=== PATIENT | male | born 1950 | race Caucasian/White ===

== ENCOUNTER 2016-11-25 08:20 | Inpatient (IN) | payer OTHER ==
[2016-11-10 13:44] VITALS: BMI 29.0
--- NOTE | 2016-11-10 14:17 | PAT Medication Instructions ---
Service Date Nov 10, 2016. Current Home Medication List Acetaminophen (Tylenol), 1,000 MG PO UD PRN for Pain Phenylephrine-Ibuprofen (Advil Sinus Congestion & 10-200 mg), 1 DOSE PO UD PRN for SINUS CONGESTION Medication Instructions For Your Scheduled Surgery - Hold the following medications the morning of surgery: Phenylephrine-Ibuprofen (Advil Sinus Congestion & 10-200 mg), 1 DOSE PO UD PRN for SINUS CONGESTION (otherwise okay to continue per surgeon) - Take the following medications the morning of surgery with a sip of water otherwise nothing to eat or drink after midnight: Acetaminophen (Tylenol), 1,000 MG PO UD PRN for Pain (may take if needed up to 4 hours prior to surgery) - Take the following medications as scheduled the night before surgery: Acetaminophen (Tylenol), 1,000 MG PO UD PRN for Pain If you have any questions please call us at [phone] or [phone] or [phone]
--- NOTE | 2016-11-10 14:42 | DIAGNOSTIC IMAGING REPORT ---
CHEST 2 VIEWS ROUTINE HISTORY: 66 years-old Male PAT preoperative study. No acute chest complaints. COMPARISON: Chest radiographs 11/14/2012 TECHNIQUE: Frontal and lateral views of the chest FINDINGS: Cardiomediastinal and hilar silhouettes are within normal limits. There is atherosclerosis of the aorta. No pneumothorax, pleural effusion, focal airspace consolidation or overt pulmonary edema. Minimal subsegmental atelectasis of the lingula. The bones are grossly intact. IMPRESSION: No acute cardiopulmonary process. The above report was generated using voice recognition software. It may contain grammatical, syntax or spelling errors. Electronically signed by: Robert Levi M.D. 11/10/2016 2:41 PM Dictated Date/Time: 11/10/2016 2:40 PM
[2016-11-10 14:48] LABS: BASO % 0.8 %; BASO ABS # 0.04 K/uL (0-0.2); COMPLETE YES; EOS % 2.7 %; HEMATOCRIT 41.5 % (42-52); IG% 0.2 %; LYMPH % 42.9 %; LYMPH ABS # 2.09 K/uL (1.2-3.4); MEAN CORPUSCULAR HEMOGLOBIN 31.7 pg (25-34); MEAN CORPUSCULAR HGB CONC 34.5 g/dl (32-36); MEAN PLATELET VOLUME 9.3 fL (7.4-10.4); MONO % 7.2 %; NEUT % 46.2 %; PLATELET COUNT 305 K/uL (130-400); RED BLOOD COUNT 4.51 M/uL (4.7-6.1); WHITE BLOOD COUNT 4.87 K/uL (4.8-10.8)
[2016-11-10 14:51] LABS: URINE APPEARANCE CLEAR (CLEAR); URINE BILIRUBIN NEG (NEG); URINE COLOR YELLOW; URINE NITRITE NEG (NEG); UROBILINOGEN NEG (NEG); ZZUR CULT IF INDIC CLEAN CATCH NO
[2016-11-10 14:57] LABS: BUN/CREATININE RATIO 22.1 (10-20); CALCIUM 9.9 mg/dl (8.5-10.1); CREATININE 0.75 mg/dl (0.60-1.40); POTASSIUM 4.1 mmol/L (3.5-5.1)
[2016-11-10 14:59] LABS: MANUAL MICROSCOPIC REQUIRED? NO; REVIEW REQ? NO
[2016-11-25] VITALS (7 sets, daily range): BP systolic 132–146; BP diastolic 72–90; PULSE 62–89; TEMP 36.3–36.7; O2SAT 95–99; Ht 175.3 cm; Wt 88.9 kg
[~2016-11-25] VITALS: Ht 175.3 cm; Wt 88.9 kg
[~2016-11-25 08:20] MED LIST: ACET-1256 PO; CEFAZOLIN 2000 MG/60 ML D5W IV SCH; CLINDAMYCIN 600 MG/54 ML D5W IV SCH; LACTATED RINGER'S 1000ML 1,000 ML IV SCH; PHEN-1083 PO
[2016-11-25] MEDS ORDERED: FENTANYL CITRATE INJ 50 MCG/1 ML 2 ML VIAL ONE ×3 (09:50→11:49)
[2016-11-25] MEDS ORDERED: MIDAZOLAM HCL 1 MG/ML 2ML VIAL ONE (09:50)
--- NOTE | 2016-11-25 09:56 | History & Physical Bridge Note ---
H&P Re-Evaluation Bridge Note: I have examined the patient, reviewed the History & Physical and in the interval since the performance of the History & Physical I have noted the following changes of clinical significance: No changes noted
--- NOTE | 2016-11-25 09:57 | History and Physical ---
History & Physical Date Nov 25, 2016. Chief Complaint Back and leg pain History of Present Illness The patient is a 66 year old male with complaints of back and leg pain Additional History Hepatic Disease: No Endocrine Disorder: No Kidney Disease: No Hypertension: No Heart Disease: No Bleeding Tendencies: No Infectious Diseases: No Allergies Coded Allergies: Ampicillin (Verified Allergy, Mild, RASH, 11/10/16) Adhesives (Verified Allergy, Unknown, RASH, 11/10/16) Hornet Venom (Verified Allergy, Unknown, "hornet sting = swelled up", 11/10) Penicillins (Verified Allergy, Unknown, RASH, 11/10/16) Home Medications Scheduled PRN Acetaminophen (Tylenol), 1,000 MG PO UD PRN for Pain Phenylephrine-Ibuprofen (Advil Sinus Congestion & 10-200 mg), 1 DOSE PO UD PRN for SINUS CONGESTION Physical Examination Skin: warm/dry, no rash Eyes: normal inspection, EOMI, sclerae normal ENT: normal ENT inspection, pharynx normal Head: normocephalic, atraumatic Neck: supple, no adenopathy, trachea midline Respiratory/Chest: lungs clear, normal breath sounds, no respiratory distress Cardiovascular: regular rate, rhythm, no edema, no murmur Abdomen / GI: normal bowel sounds, non tender Back: normal inspection Extremities: normal inspection, normal range of motion Neurologic/Psych: no motor/sensory deficits, alert, normal reflexes, oriented x 3 Diagnosis Lumbar spinal stenosis Plan of Treatment Treatment L2 3 with removal of hardware L3 4
[2016-11-25] MEDS ORDERED: CLINDAMYCIN 600 MG/54 ML D5W IV ONE (10:12)
[2016-11-25] MEDS ORDERED: BACITRACIN 50000 UNIT VIAL ONE (10:23)
[2016-11-25] MEDS ORDERED: BUPIVACAINE/EPINEPHRINE 0.5% MPF 1:200,000 30 ML VIAL ONE (10:23)
[2016-11-25] MEDS ORDERED: EpHEDrine SULFATE INJ 50 MG/ML AMP IV PRN (10:30)
[2016-11-25] MEDS ORDERED: PROMETHAZINE HCL INJ 6.25 MG in SODIUM CHLORIDE 0.9% 50ML 50 ML IV PRN (10:30)
[2016-11-25] MEDS ORDERED: HYDROmorphone INJ 1 MG/ML SYR IV PRN (10:30)
[2016-11-25] MEDS ORDERED: ATROPINE SULFATE 0.1 MG/ML 5ML SYR IV PRN (10:30)
[2016-11-25] MEDS ORDERED: FENTANYL CITRATE INJ 50 MCG/1 ML 2 ML VIAL IV PRN (10:30)
[2016-11-25] MEDS ORDERED: ONDANSETRON INJ 2 MG/ML 2 ML VIAL IV PRN ×2 (10:30→12:30)
[2016-11-25] MEDS ORDERED: HYDROmorphone INJ 2 MG/ML SYR/VIAL ONE ×2 (10:59→12:27)
[2016-11-25] MEDS ORDERED: PROPOFOL IV EMULSION 10 MG/ML 20 ML VIAL IV ONE (11:11)
[2016-11-25] MEDS ORDERED: DEXAMETHASONE SOD INJ 4 MG/ML VIAL ONE (11:11)
[2016-11-25] MEDS ORDERED: LIDOCAINE HCL 2% 2 ML VIAL (20MG/ML) ONE (11:11)
[2016-11-25] MEDS ORDERED: SODIUM CHLORIDE 0.9% 1000ML 1,000 ML IV SCH (12:23)
[2016-11-25] MEDS ORDERED: FLOSEAL HEMOSTATIC MATRIX 10ML TOP ONE (12:25)
[2016-11-25] MEDS ORDERED: EpHEDrine SULFATE 50MG/5ML SYR ONE (12:29)
[2016-11-25] MEDS ORDERED: NEOSTIGMINE METHYLSULFATE 1 MG/ML 10ML VIAL ONE (12:29)
[2016-11-25] MEDS ORDERED: GLYCOPYRROLATE INJ 0.2 MG/ML VIAL ONE (12:29)
[2016-11-25] MEDS ORDERED: ROCURONIUM BROMIDE 10 MG/ML 5 ML VIAL IV ONE (12:29)
[2016-11-25] MEDS ORDERED: KETOROLAC TROMETHAMINE 30 MG/ML VIAL ONE (12:29)
[2016-11-25] MEDS ORDERED: FAMOTIDINE 20 MG TAB PO PRN (12:30)
[2016-11-25] MEDS ORDERED: ACETAMINOPHEN 500 MG TAB PO PRN (12:30)
[2016-11-25] MEDS ORDERED: ALUMINUM/MAGNESIUM SUSP 30 ML UDC PO PRN (12:30)
[2016-11-25] MEDS ORDERED: PROMETHAZINE HCL INJ 12.5 MG in SODIUM CHLORIDE 0.9% 50ML 50 ML IV PRN (12:30)
[2016-11-25] MEDS ORDERED: METOCLOPRAMIDE HCL INJ 5 MG/ML 2 ML VIAL IV PRN (12:30)
[2016-11-25] MEDS ORDERED: SOD PHOSPHATE/SOD BIPHOSPHATE ENEMA 132 ML BTL PR PRN (12:30)
[2016-11-25] MEDS ORDERED: DO NOT ADMINISTER PNEUMOCOCCAL VACCINE PRN ×2 (12:30)
[2016-11-25] MEDS ORDERED: hydrOXYzine HCL 25 MG TAB PO PRN (12:30)
[2016-11-25] MEDS ORDERED: LORAZEPAM 0.5 MG TAB PO PRN (12:30)
[2016-11-25] MEDS ORDERED: BISACODYL 10 MG SUPP PR PRN (12:30)
[2016-11-25] MEDS ORDERED: NALOXONE HCL 0.4 MG/1 ML VIAL/CARP IV PRN ×2 (12:30)
[2016-11-25] MEDS ORDERED: DO NOT ADMINISTER FLU VACCINE PRN ×3 (12:30)
[2016-11-25] MEDS ORDERED: LORAZEPAM INJ 0.5 MG in SYRINGE 0 ML IV PRN (12:30)
[2016-11-25] MEDS ORDERED: MAGNESIUM HYDROXIDE SUSP 30 ML UDC PO PRN (12:30)
[2016-11-25] MEDS ORDERED: ACETAMINOPHEN IV 100 ML IV PRN (12:30)
--- NOTE | 2016-11-25 12:35 | [facility] Operative Report ---
Operative Report Operative Date Nov 25, 2016. Pre-Operative Diagnosis Lumbar spinal stenosis Post-Operative Diagnosis Lumbar spinal stenosis Procedure(s) Performed #1 removal of posterior instrumentation L3 4. #2 expiration of fusion L3 4. #3 lumbar decompression medial facetectomy foraminotomies L2 3. 4 posterior spinal fusion L2 3. #5 is interior instrumentation L2 3. #6 interbody fusion L2 3. #7 placement peek cage 12 x 22 mm at L2-3. #8 placement of locally harvested morcellized autograft in the posterior gutters. #9 placement of ostial amp bone graft in the interbody space and posterior lateral gutters. Surgeon Dr. Cordell Atkinson Seat Builder Surgeon(s) Wale Ambrosio PA-C Estimated Blood Loss 250mL Findings Severe spinal stenosis Specimens Specimen A. Explanted lumbar hardware L3-L4 Description of Procedure Patient was met with preoperatively case discussed all questionswere addressed. After informed consent patient patient was taken operative suite and intubated and placed in a prone position on the [place] table top Eliu frame. All bony prominences well-padded eyes inspected to ensure no external pressure. This time the lumbar spine was prepped and draped in normal sterile fashion. Sharp dissection with the assistance of Bovie cautery was performed onto an exposing the lamina of L2 transverse processes of L2 and instrumentation at L3 4 level bilaterally. Then proceeded remove the hardware bilaterally explored the fusion mass noting it to be intact. Then performed a complete laminectomy of L2 addressing severe lateral recess and foraminal stenosis. Pedicle screws are then placed in L2 and L3 bilaterally with assistance of fluoroscopy in the purposes jazmine placed. Through a trans- foraminal approach on the right complete discectomy was performed and plate could subcortical bleeding bone and a 12 x 22 mm peek cage filled with ostial amp bone graft tapped in position. The rods were then compressed locked and final position bilaterally. The transverse processes of L2 and L3 burred to subcortical bleeding bone. Ostial amp and local autograft placed and posterior gutters. 15 round SUNNY drain inserted. Incision closed with 1 Vicryl in the fascia 2-0 Vicryl subcutaneous tediously 4 Monocryl for final skin closure Steri -Strips sterile dressings placed. Patient we can take PACU stable condition. Please note that Wale yuen was present throughout the entire procedure involved in patient positioning complex portions of the surgery and final skin closure. I attest to the content of the Intraoperative Record and any orders documented therein. Any exceptions are noted below.
[2016-11-25] MEDS ORDERED: HYDROmorphone HCL 0.5MG/ML 50 ML CASSETTE ONE (12:45)
[2016-11-25] MEDS ORDERED: ESMOLOL HCL 10 MG/ML 10 ML VIAL ONE (13:16)
--- NOTE | 2016-11-25 13:39 | DIAGNOSTIC IMAGING REPORT ---
INTRAOPERATIVE LUMBAR SPINE 2 VIEWS CLINICAL HISTORY: L2-L4 DECOMP/FUSION WITH INTERBODY COMPARISON STUDY: November 2012 FINDINGS: 8 seconds of fluoroscopic time was utilized. There are postsurgical changes of discectomies and interbody fusions at the L2-3, L3-4, and L4-5 levels. The L4 pedicle screws have been removed. L2 pedicle screws have been placed. There are L2-3 posterior spinal rods. IMPRESSION: Intraoperative fluoroscopic spot films as described above. Electronically signed by: Carlos Johnson M.D. 11/25/2016 1:38 PM Dictated Date/Time: 11/25/2016 1:36 PM
--- NOTE | 2016-11-25 13:45 | Anesthesiology Progress Note ---
Anesthesia Post Op Note Date & Time Nov 25, 2016 at 13:45 Vital Signs Pain Intensity: 0 Vital Signs Past 12 Hours Date Time Temp Pulse Resp B/P (MAP) Pulse Ox O2 Delivery O2 Flow Rate FiO2 11/25/16 13:30 74 13 141/80 99 Nasal Cannula 4 11/25/16 13:20 36.5 70 12 134/81 98 Nasal Cannula 4 11/25/16 13:10 71 12 142/79 98 Nasal Cannula 4 11/25/16 13:00 76 14 150/78 99 Oxymask 10 11/25/16 12:50 84 14 135/67 99 Oxymask 10 11/25/16 12:44 37.0 77 14 162/78 98 Oxymask 10 11/25/16 08:43 36.7 62 18 140/81 95 Room Air Notes Mental Status: alert / awake / arousable, participated in evaluation Pt Amnestic to Procedure: Yes Nausea / Vomiting: adequately controlled Pain: adequately controlled Airway Patency, RR, SpO2: stable & adequate BP & HR: stable & adequate Hydration State: stable & adequate Anesthetic Complications: no major complications apparent
[2016-11-25] MEDS: HYDROmorphone HCL 0.5MG/ML 50 ML CASSETTE IV PRN ×3 (13:54→23:02)
[2016-11-25] MEDS: LACTATED RINGER'S 1000ML 1,000 ML IV SCH ×2 (14:36→19:35)
[2016-11-25] MEDS: CLINDAMYCIN IV 600 MG in DEXTROSE 5% 50ML 50 ML IV SCH (18:01)
[2016-11-25] MEDS: DEXAMETHASONE INJ 6 MG in SYRINGE 0 ML IV SCH (19:35)
[2016-11-25] MEDS: DOCUSATE SODIUM/SENNA 50/8.6MG TAB PO SCH (21:43)
[2016-11-26] VITALS (7 sets, daily range): BP systolic 123–137; BP diastolic 71–84; PULSE 59–99; TEMP 36.5–36.9; O2SAT 94–98
[2016-11-26] MEDS: LACTATED RINGER'S 1000ML 1,000 ML IV SCH (00:35)
[2016-11-26] MEDS: CLINDAMYCIN IV 600 MG in DEXTROSE 5% 50ML 50 ML IV SCH (03:07)
[2016-11-26] MEDS: DEXAMETHASONE INJ 6 MG in SYRINGE 0 ML IV SCH ×2 (03:08→12:13)
[2016-11-26] MEDS ORDERED: DC PCA SCH (06:00)
[2016-11-26] MEDS ORDERED: OXYCODONE HCL IR 5 MG TAB (IMMEDIATE RELEASE) PO PRN (06:00)
[2016-11-26] MEDS ORDERED: HYDROmorphone INJ 0.5 MG/0.5 ML SYR IV PRN (06:00)
[2016-11-26] MEDS ORDERED: HYDROmorphone INJ 1 MG/ML SYR IV PRN (06:00)
[2016-11-26 06:17] LABS: COMPLETE YES; HEMATOCRIT 36.9 % (42-52); IG% 0.2 %; LYMPH % 6.6 %; LYMPH ABS # 0.86 K/uL (1.2-3.4); MEAN CELL VOLUME 90.9 fL (80-100); MEAN CORPUSCULAR HEMOGLOBIN 31.8 pg (25-34); MEAN PLATELET VOLUME 9.4 fL (7.4-10.4); MONO % 1.1 %; NEUT % 92.1 %; PLATELET COUNT 337 K/uL (130-400); RED BLOOD COUNT 4.06 M/uL (4.7-6.1); WHITE BLOOD COUNT 13.11 K/uL (4.8-10.8)
[2016-11-26] MEDS ORDERED: NURSING DECISION MEDICATION ORDER SCH (06:45)
[2016-11-26 06:52] LABS: BUN/CREATININE RATIO 19.1 (10-20); CALCIUM 9.7 mg/dl (8.5-10.1); CREATININE 0.78 mg/dl (0.60-1.40); POTASSIUM 4.4 mmol/L (3.5-5.1)
[2016-11-26] MEDS ORDERED: RXC5 PO (09:34)
--- NOTE | 2016-11-26 09:35 | Discharge Instructions ---
Discharge Instructions Date of Service Nov 26, 2016. Admission Reason for Admission: Lumbar Spinal Stenosis Discharge Discharge Diagnosis / Problem: lumbar stenosis Discharge Goals Goal(s): Improve function Activity Recommendations Activity Limitations: per Instructions/Follow-up section . Instructions / Follow-Up Instructions / Follow-Up ACTIVITY RECOMMENDATIONS: SELF CARE INSTRUCTIONS AFTER THORACIC/LUMBAR FUSIONS 1. You may walk to your tolerance. It is good exercise for your legs and back. Expect some back and intermittent leg aches and pains. 2. You may perform "counter-top" level activities (make a sandwich, luiz with a project, etc.). 3. No bending or lifting of more than 10 pounds or back twisting of any nature (roll like a log when turning in bed). 4. You may ride in a car for 20-30 minutes at a time. No driving until after your first visit with your doctor. 5. Frequent changes of position and restricting sitting to 30 minutes at a time will help limit the amount of back spasms and stiffness you may experience. 6. You may discontinue the use of ambulatory aids (cane, crutches, etc.) once your strength and confidence allow. 7. You may aeronautical products sales engineer the shower and let water strike your incision when you arrive home at least once daily. Do not take a tub bath, sit in a hot tub or go into a swimming pool until after your first recheck in the office. SPECIAL CARE INSTRUCTIONS: VERY IMPORTANT TO READ AND REVIEW A. Your surgical incision has been closed with a cosmetic suture under the skin that will dissolve in about 6 weeks. In 14 days, you can use a pair of clean scissors and cut the suture that is left outside of the skin at the ends of your incision. 1. The small skin tapes can be removed 7 days after surgery if they have not fallen off by that point. 2. You may keep the wound open to air as much as possible to promote healing after post-op day number 5 unless told otherwise by your doctor. 3. If you think the wound looks like it is becoming infected (redness or worsening drainage) and/or you are experiencing fever, chill or worsening back pain and muscle spasms, contact the office so that we may evaluate you as soon as possible. B. Complications are uncommon, but please contact us if you have any signs or symptoms of: 1. wound infection (fever higher than 102.5 degrees F, redness, separation of wound, drainage, or increasing pain from the incision) 2. blood clots in legs (pain, swelling, redness and warmth in legs) 3. urinary tract infection (fever higher than 102.5 degrees F, burning upon urination or increased frequency of urination) 4. nerve problems (inability to walk on your toes or heels, numbness, loss of bowel or bladder control) 5. any other symptoms that concern you C. Please call the office at if you have any concerns or questions about your operation or recovery. D. No smoking! Smoking drastically decreases the chance of a solid fusion. E. Do not take any anti-inflammatory medications (Indocin, Advil, Motrin, Aspirin, Naprosyn, etc.) as these may inhibit the chance of a solid fusion. Tylenol is okay to take for pain. MANAGING PAIN AFTER SPINAL SURGERY 1. Narcotic medication is intended for short-term use and will be provided for surgical pain. Surgical pain usually lasts for a period of 4-6 weeks. Narcotic medication includes Percocet, Vicodin, Darvocet, Tylenol #3 or Lortab. 2. Longer-term pain is more appropriately treated with non-narcotic medication such as Tylenol ES. 3. Muscle spasm is not appropriately treated with narcotics. Muscle relaxers such as Soma, Flexeril or Skelaxin can be used along with Tylenol ES. 4. Remember that we all live with some "aches and pains". This is not unusual or uncommon after an injury or as we get older. a. Back pain is expected and may include muscle spasms for 4 to 6 weeks after surgery. The pain should gradually improve. If the pain worsens for no apparent reason, please contact the office. b. Intermittent leg pain may also be experienced and should not be concerned about unless it worsens for no apparent reason. If so, please contact the office. 5. We will provide appropriate medication within the normal guidelines of their prescribed use. We will also be very cautious and aware of potential abuse and extended duration of patients' medication needs. a. Pain medications are for your comfort and to assist with sleep and rest so that the tissue can heal. They are not provided in order to return to normal activity and should not be used through the day. To do so or worsening pain at night can result from ongoing tissue damage and development of tolerance to the prescribed medicine. 6. Please allow 2-3 days to process refills. Prescriptions will not be mailed but must be picked up at the office. FOLLOW UP VISIT: Keep your scheduled follow-up appointment. Any questions, please call the office at . Current Hospital Diet Patient's current hospital diet: Regular Diet Discharge Diet Recommended Diet: Regular Diet Procedures Procedures Performed: #1 removal of posterior instrumentation L3 4. #2 expiration of fusion L3 4. #3 lumbar decompression medial facetectomy foraminotomies L2 3. 4 posterior spinal fusion L2 3. #5 is interior instrumentation L2 3. #6 interbody fusion L2 3. #7 placement peek cage 12 x 22 mm at L2-3. #8 placement of locally harvested morcellized autograft in the posterior gutters. #9 placement of ostial amp bone graft in the interbody space and posterior lateral gutters. Pending Studies Studies pending at discharge: no Medical Emergencies . Who to Call and When: Medical Emergencies: If at any time you feel your situation is an emergency, please call 911 immediately. . Non-Emergent Contact Non-Emergency issues call your: Primary Care Provider . "Provider Documentation" section prepared by Cordell Atkinson. . VTE Core Measure Inpt VTE Proph given/why not?: Jennifer Velázquez, SCD's
[2016-11-26] MEDS ORDERED: KETOROLAC TROMETHAMINE 15 MG/ML VIAL IV. PRN (10:15)
--- NOTE | 2016-11-26 10:15 | Progress Note ---
Progress Note Date of Service Nov 26, 2016. Progress Note Patient's back pain is well-controlled. Leg pain markedly improved. On exam he seemed waiting halls deficits excellent strength testing appears comfortable assessment status post lumbar decompression fusion replant this time we anticipate possible home Monday.
[2016-11-26] MEDS: DOCUSATE SODIUM/SENNA 50/8.6MG TAB PO SCH (20:45)
[2016-11-27] MEDS: POLYETHYLENE (MIRALAX) 17 GM PACK PO SCH ×2 (05:57→12:38)
[2016-11-27 06:49] VITALS: BP 126/74; PULSE 69; TEMP 36.7; O2SAT 95
[2016-11-27 07:36] VITALS: BP 126/74; PULSE 69; TEMP 36.7; O2SAT 95
--- NOTE | 2016-11-27 08:29 | DISCHARGE SUMMARY ---
ADMITTING DIAGNOSIS: Adjacent level disease with spinal stenosis. DISCHARGE DIAGNOSIS: Same. OPERATIONS AND DATES: Removal of hardware at L3-L4, lumbar decompression and fusion L2-L3 performed by Dr. Atkinson. HOSPITAL COURSE AND TREATMENT: Mr. Rojas is a pleasant 66-year-old male with history, physical examination and radiographic images consistent with the above-mentioned diagnosis. For this reason, he was brought to the operating room and underwent the above-mentioned procedure. This was performed by Dr. Atkinson under general anesthesia. He left the operating room with SUNNY drain and Das catheter in place. He was brought to PACU in stable condition. He was then transferred to the orthopedic floor with ELECTRICAL SYSTEMS DRAFTER for pain control. He was placed on GI and DVT prophylaxis. Throughout his hospital course, his calves remained supple and nontender. His abdomen was soft and nontender as well. On 11/27/2016, the patient was deemed safe for home discharge. His discharge orders were to resume his prehospital medications. He is to use oxycodone for pain control if needed. He is to ambulate on a regular basis, change his dressing once daily until it is dry, and once it is dry, he may begin showering. We are to see the patient in the office in approximately 2 weeks from the date of surgery or sooner if he develops any fevers, chills, increased drainage from the incision or worsening pain.
== END 2016-11-27 13:07 | disposition home or self-care (01) | DRG 460 ==
LOC: C.ACU 08:20 → C.3E 12:25 → ENRESERV 13:12 → CANBEDREQ 13:40
PROVIDERS: ADMIT Orthopaedic Surgery Orthopaedic Surgery of the Spine; ATTEND Orthopaedic Surgery Orthopaedic Surgery of the Spine
PROC: 0SP004Z Removal of Internal Fixation Device from Lumbar Vertebral Joint, Open Approach (ICD-10-PCS; principal; 2016-11-25 10:15)
PROC: 0SG00AJ Fusion of Lumbar Vertebral Joint with Interbody Fusion Device, Posterior Approach, Anterior Column, Open Approach (ICD-10-PCS; principal; 2016-11-25 10:15)
PROC: 0ST20ZZ Resection of Lumbar Vertebral Disc, Open Approach (ICD-10-PCS; principal; 2016-11-25 10:15)
DX: M48.061 Spinal stenosis, lumbar region without neurogenic claudication (principal)